=== PATIENT | male | born 1970 | race Caucasian/White ===

== ENCOUNTER 2021-02-20 13:57 | Emergency (ER) | payer MEDICAID ==
[2021-02-20] MEDS ORDERED: Aspirin 81 MG Tab.Chew PO ONE (14:33)
[2021-02-20] MEDS ORDERED: Atenolol 25 MG Tab PO ONE (14:33)
--- NOTE | 2021-02-20 14:48 | EDM.PDOC ---
ED HPI GENERAL MEDICAL PROBLEM - General Chief Complaint: Chest Pain Stated Complaint: LEFT ARM AND LEG PAIN Time Seen by Provider: 02/20/21 14:25 Source of Information: Reports: Patient, EMS, RN History Limitations: Reports: No Limitations - History of Present Illness INITIAL COMMENTS - FREE TEXT/NARRATIVE: 50 yo male presents with a couple weeks of intermittent L arm and L leg numbness, diaphoresis, light-headedness. He has been seen once in the clinic for these sx's and an EKG and blood work was unremarkable. No trop was ordered in the clinic. He was given a heart monitor that he is wearing and an EST is planned for the near future. Today he had the same left extremity sx's and the leg felt warmer than usual plus some mild CP so he called EMS who transported here to our ER from his home in [place]. His is here with him and is a better historian. His sx's are still present, but less upon arrival. Onset: Other (sx's began about 2 weeks ago) Duration: Week(s): (2), Intermittent Location: Reports: Chest, Upper Extremity, Left, Lower Extremity, Left Quality: Reports: Other (numbness of L sided extrems, no weakness) Severity: Mild Improves with: Reports: Other (unknown) Worsens with: Reports: Other (unknown) Context: Reports: Other (See HPI) Associated Symptoms: Reports: Chest Pain, Diaphoresis (at times, not today), Other (L arm and leg mild numbness). Denies: Nausea/Vomiting Treatments COOK RELIEF: Reports: Other (see below) (none) Left Arm Pain Score (Numeric/FACES): 8 - Related Data Allergies Allergy/AdvReac Type Severity Reaction Status Date / Time No Known Allergies Allergy Verified 02/20/21 14:12 Home Meds: Home Meds atenoloL [Atenolol] 50 mg PO DAILY 02/20/21 [History] lisinopriL [Lisinopril] 40 mg PO DAILY 02/20/21 [History] Past Medical History Cardiovascular History: Reports: Hypertension Social & Family History - Tobacco Use Tobacco Use Status *Q: Never Tobacco User - Caffeine Use Caffeine Use: Reports: Soda - Recreational Drug Use Recreational Drug Use: No ED ROS GENERAL - Review of Systems Review Of Systems: See Below Constitutional: Reports: No Symptoms HEENT: Reports: No Symptoms Respiratory: Reports: No Symptoms. Denies: Shortness of Breath, Cough Cardiovascular: Reports: Chest Pain (mild) GI/Abdominal: Reports: No Symptoms : Reports: No Symptoms Musculoskeletal: Reports: No Symptoms Skin: Reports: No Symptoms Neurological: Reports: Numbness (L arm and L leg) Psychiatric: Reports: No Symptoms ED EXAM, GENERAL - Physical Exam Exam: See Below Exam Limited By: No Limitations General Appearance: Alert, WD/WN, No Apparent Distress, Obese Eye Exam: Bilateral Eye: Normal Inspection Ears: Normal External Exam, Normal Canal, Hearing Grossly Normal, Normal TMs Ear Exam: Bilateral Ear: Auricle Normal, Canal Normal, TM normal Nose: Normal Inspection, No Blood Throat/Mouth: Normal Inspection, Normal Lips, Normal Oropharynx, Normal Voice, No Airway Compromise Head: Atraumatic, Normocephalic Neck: Normal Inspection, Supple, Non-Tender Respiratory/Chest: No Respiratory Distress, Lungs Clear, Normal Breath Sounds, No Accessory Muscle Use, Chest Non-Tender Cardiovascular: Regular Rate, Rhythm, No Edema GI/Abdominal: Normal Bowel Sounds, Soft, Non-Tender, No Distention Back Exam: Normal Inspection. No: CVA Tenderness (R), CVA Tenderness (L) Extremities: Normal Inspection, Normal Range of Motion, Non-Tender, No Pedal Edema Neurological: Alert, Oriented, CN II-XII Intact, Normal Cognition. No: No Motor/Sensory Deficits (no weakness, has mild subjective L arm and L leg numbness) Psychiatric: Normal Affect, Normal Mood Skin Exam: Warm, Dry, Intact, Normal Color, No Rash Course - Vital Signs Last Recorded V/S: Last Vital Signs Temp Pulse 69 02/20/21 15:37 Resp 13 02/20/21 15:37 BP 163/105 H 02/20/21 15:37 Pulse Ox 96 02/20/21 15:37 - Orders/Labs/Meds Labs: Laboratory Tests 02/20/21 Range/Units 14:08 Troponin I High Sens 6.8 (<=60.3) pg/mL Meds: Medications Discontinued Medications Generic Name Dose Route Start Last Admin Trade Name Freq PRN Reason Stop Dose Admin Aspirin 324 mg 02/20/21 14:33 02/20/21 15:07 Aspirin 81 Mg Tab.Chew PO 02/20/21 14:34 324 mg ONETIME ONE Administration Atenolol 25 mg 02/20/21 14:33 02/20/21 15:09 Atenolol 25 Mg Tab PO 02/20/21 14:34 25 mg ONETIME ONE Administration - Re-Assessments/Exams Free Text/Narrative Re-Assessment/Exam: 02/20/21 15:59 His presenting sx's are all gone now, denies any hx of neck pain or injury. Departure - Departure Time of Disposition: 16:00 Disposition: Home, Self-Care 01 Condition: Fair Clinical Impression: Left sided numbness HTN (hypertension) Qualifiers: Hypertension type: unspecified Qualified Code(s): I10 - Essential (primary) hypertension Instructions: Hypertension, Adult, [id number] Referrals: Neno Townsend NP [Primary Care Provider] - Forms: ED Department Discharge Additional Instructions: Increase your Atenolol to 50 mg every 12 hrs, next dose at bedtime tonight. Take a baby aspirin or 1/4 of a full aspirin daily with a meal. Follow through with the work up started by your primary care provider. Return as needed. Sepsis Event Note (ED) - Evaluation Sepsis Screening Result: No Definite Risk - Focused Exam Vital Signs: Vital Signs Pulse Pulse Resp BP BP Pulse Ox 02/20/21 15:37 69 13 163/105 H 96 02/20/21 15:09 82 175/111 H 02/20/21 14:42 71 13 186/117 H 96 02/20/21 14:11 77 18 180/109 H 95
== END 2021-02-20 16:50 | disposition home or self-care (01) ==
LOC: JP.ED 13:57
DX: R20.0 Anesthesia of skin (principal); I10 Essential (primary) hypertension; Z79.899 Other long term (current) drug therapy
CPT/HCPCS: 36415; 84484; 99284; A9270

== ENCOUNTER 2022-08-07 17:50 | Emergency (ER) | payer MEDICAID | END 2022-08-07 19:54 | disposition home or self-care (01) | LOC: JP.ED 17:50 | DX: I89.0 Lymphedema, not elsewhere classified (principal); I10 Essential (primary) hypertension; Z79.899 Other long term (current) drug therapy | CPT/HCPCS: 93971-LT; 99283 ==